=== PATIENT | male | born 1940 | race African-American/Black ===

== ENCOUNTER 2019-02-18 21:17 | Inpatient (IN) | payer MEDICARE, OTHER ==
[~2019-02-18] VITALS: Ht 172.7 cm; Wt 69.9 kg
--- NOTE | 2019-02-18 21:32 | NUR ---
[id number] FROM [facility] FOR AGGRESSIVE BEHAVIOR. HX DEMENTIA, SCHIZO. 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 PT APPEARS CALM, NO ACUTE DISTRESS NOTED. AOX1, VSS, RR EVEN AND UNLABORED ON RA. BILATERAL LOWER EXTREMITIES CONTRACTED. WOUND DRESSINGS ON RIGHT HIP AND RIGHT LOWER EXTREMITIY. HOOKED TO MONITOR, READY FOR EVAL.
[2019-02-18] MEDS ORDERED: IV NS 0.9% 500 ML BAG IV ONE (22:00)
--- NOTE | 2019-02-18 22:16 | NUR ---
PT IS A HARD STICK.
[2019-02-18 22:35] LABS: BASOPHILS # (AUTO) 0.2 /CMM (0.0-0.2); BASOPHILS % (AUTO) 0.9 % (0.0-2.0); EOSINOPHILS % (AUTO) 0.1 % (0.0-6.0); HEMATOCRIT 56 % (39-51); HEMOGLOBIN 18.3 g/dL (13.5-17.5); LYMPHOCYTES # (AUTO) 1.2 /CMM (0.8-4.8); LYMPHOCYTES % (AUTO) 6.4 % (20.0-44.0); MEAN CORPUSCULAR HGB CONC 33 g/dl (31.0-36.0); MEAN CORPUSCULAR VOLUME 90 fL (80-96); MONOCYTES # (AUTO) 1.8 /CMM (0.1-1.30); MONOCYTES % (AUTO) 9.4 % (2.0-12.0); NEUTROPHILS # (AUTO) 15.7 /CMM (1.8-8.9); NEUTROPHILS % (AUTO) 83.2 % (43.0-81.0); PLATELET COUNT (AUTO) 239 /CMM (150-450); RED BLOOD CELL COUNT(AUTO) 6.15 MIL/uL (4.5-6.0); WHITE BLOOD COUNT (AUTO) 18.8 K/uL (4.3-11.0)
[2019-02-18 23:00] LABS: ALANINE AMINOTRANSFERASE 47 U/L (12-78); ALBUMIN 3.1 g/dL (3.4-5.0); ALKALINE PHOSPHATASE 80 U/L (46-116); ASPARTATE AMINOTRANSFERASE 84 U/L (15-37); BILIRUBIN,DIRECT 0.1 mg/dL (0.0-0.2); BILIRUBIN,TOTAL 0.6 mg/dL (0.2-1.0); CALCIUM, SERUM 9.4 mg/dL (8.5-10.1); CARBON DIOXIDE 29 mmol/L (21-32); CHLORIDE 115 mmol/L (98-107); CREATININE 2.2 mg/dL (0.6-1.3); GLUCOSE 133 mg/dL (74-106); POTASSIUM 5.2 mmol/L (3.5-5.1); SODIUM SERUM 155 mmol/L (136-145); TOTAL PROTEIN, SERUM 8.8 g/dL (6.4-8.2)
[2019-02-18 23:01] LABS: UREA NITROGEN, BLOOD 117 mg/dL (7-18)
--- NOTE | 2019-02-18 23:14 | NUR ---
ATTEMPTED TO COLLECT URINE VIA STRAIGHT CATH. UNSUCCESSFUL. PLACED CONDOM CATH FOR LATER COLLECTION. AWARE
[2019-02-18] MEDS ORDERED: IV NS 0.9% 1,000 ML BAG IV ONE (23:30)
--- NOTE | 2019-02-18 23:37 | NUR ---
CALLED NURSING SUP FOR TELE BED
[2019-02-19] MEDS ORDERED: ATOR40TA GT (00:21)
[2019-02-19] MEDS ORDERED: LEVE500T20 PO (00:21)
[2019-02-19] MEDS ORDERED: DIVA-78 PO (00:21)
[2019-02-19] MEDS ORDERED: FAMO20TA8 PO (00:21)
[2019-02-19] MEDS ORDERED: QUET25TA PO (00:21)
[2019-02-19 00:40] VITALS: BP 113/93
--- NOTE | 2019-02-19 00:46 | NUR ---
PT TRANSFERRED PER ACLS PROTOCOL
[2019-02-19] MEDS ORDERED: IV D5/0.45 NACL 1,000 ML IV PRN (01:15)
[2019-02-19] MEDS ORDERED: MAG HYDROX/AL HYDROX/SIMETH 30 ML UDC PO PRN (01:30)
[2019-02-19] MEDS ORDERED: Z GUARD REMEDY 2 OZ OINT TP PRN (01:30)
[2019-02-19] MEDS ORDERED: ACETAMINOPHEN 325 MG TABLET PO PRN (01:30)
[2019-02-19] MEDS ORDERED: ONDANSETRON HCL/PF 4 MG/2 ML VIAL IVP PRN (01:30)
[2019-02-19] MEDS ORDERED: MAGNESIUM HYDROXIDE 30 ML UDC PO PRN (01:30)
[2019-02-19] MEDS ORDERED: HYDROCODONE/APAP 5/325MG 1 EACH TABLET PO PRN (01:30)
[2019-02-19] MEDS ORDERED: ZOLPIDEM TARTRATE 5 MG TABLET PO PRN (01:30)
--- NOTE | 2019-02-19 01:30 | NUR ---
LATE ENTRY: NEW ADMISSION NOTE. PATIENT ARRIVED TO UNIT AT 0040 BEING ADMITTED TO TELEMETRY TO DR. JAIMES. PATIENT IS ALERT BUT NOT ORIENTED. WITHDRAWS TO TOUCH AND RESPONDS WITH GARBLED WORDS. RESISTING BEING TURNED BY GRABBING RAILS.. PICUTRES TAKEN OF WOUNDS. MOS SIGNIFICANT WOUND ARE UNSTAGEABLE PRESSURE INJURY TO RIGHT HIP CLEANED COVERED WITH DRESSING. AND SKIN TEAR TO RIGHT ANKLE, DRESSING APPLIED. 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 PATIENT GIVEN ACCESS TO CALL LIGHT. BED DOWN LOCKED SR X3. TELE APPLIED AND IS SR.
[2019-02-19 01:41] LABS: LYMPHOCYTES % (MANUAL) 5 % (16-48); MONOCYTES % (MANUAL) 5 % (0-11.0); NEUTROPHILS % (MANUAL) 90 (42-76)
[2019-02-19] MEDS ORDERED: CEFTRIAXONE 1 G VIAL ONE (01:54)
[2019-02-19] MEDS ORDERED: CEFTRIAXONE 1 G in IV D5W 50 ML IV ONE (02:00)
--- NOTE | 2019-02-19 02:00 | NUR ---
CRITICAL LACTIC 3.8 DR. FIONA JONES INFORMED OF LACTIC ACID OF 3.8. STATES TO CONTINUE CURRENT ORDERS. NO NEW ORDERS RECIEVED.
--- NOTE | 2019-02-19 07:20 | NUR ---
CONCRETE ROD BUSTER OPENING NOTE RECEIVED PT IN BED, ALERT AND ORIENTED X0 WITH OCCASIONAL MUMBLES AND GROANS. EYES OPEN SPONTANEOUSLY TO VERBAL AND TACTILE STIMULI. NO ACUTE DISTRESS NOTED, BREATHING IS EVEN AND UNLABORED ON ROOM AIR. 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 RIGHT WRIST #20G IV INFUSING D5 1/2 NS @ 100ML/HR WITHOUT REDNESS OR SWELLING. ASPIRATION PRECAUTIONS MAINTAINED. SEIZURE PRECAUTIONS INITIATED FOR HX OF SEIZURES. NPO STATUS MAINTAINED PENDING SWALLOW EVAL. BED IS LOCKED AND IN LOWEST POSITION, SIDE RAILS UP X3, BED ALARM ON, CALL LIGHT AND POSSESSIONS WITHIN REACH.
[2019-02-19 08:00] VITALS: BP 137/50
[2019-02-19] MEDS ORDERED: PANTOPRAZOLE 40 MG VIAL IV SCH (09:00)
[2019-02-19] MEDS ORDERED: DIVALPROEX SODIUM 500 MG TABLET.DR PO SCH (09:00)
[2019-02-19] MEDS ORDERED: LEVETIRACETAM (250 MG) 250 MG TABLET PO SCH (09:00)
[2019-02-19] MEDS ORDERED: NEXIUM 40 MG VIAL IV SCH (09:00)
[2019-02-19] MEDS ORDERED: DIVALPROEX SODIUM 125 MG CAP.SPRINK PO SCH (10:00)
[2019-02-19] MEDS ORDERED: IV NS 0.9% 1,000 ML IV STA (10:16)
--- NOTE | 2019-02-19 10:16 | NUR ---
WOUND CARE CONSULT: PT PRESENTS WITH RT HIP/THIGH UNSTAGEABLE ULCER, RT LOWER LEG WOUND AND RT HAND WITH BLISTERS ON FINGERS, ALL PRESENT ON ADMISSION. PT IS INCONTINENT. PT IS COMBATIVE AT TIMES. RECOMMEND SURGICAL CONSULT AND DPM CONSULT. DR VALENCIA AND DR TAYLOR AWARE OF CONSULT REQUESTS. ALL SKIN PROTECTION RECOMMENDATIONS DISCUSSED WITH NURSING STAFF. DEFER TO SURGICAL AND PODIATRY TEAM FOR WOUND TREATMENT PLAN. WILL SEE PRN. PT ON JALEN ISOFLEX LOW AIRLOSS BED. IN AGREEMENT WITH PLAN OF CARE. Addendum: 02/19/19 at 1019 by DILCIA RODRIGUEZ WNDNU Amended: Links added.
--- NOTE | 2019-02-19 10:54 | NUR ---
MS RN NOTE OBTAINED ORDER FOR MIDLINE INSERTION AFTER FAILED IV INSERTION AND PT COMBATIVENESS FROM ARNIE LAYTON NP.
[2019-02-19] MEDS ORDERED: VITAMINS A AND D 56.7 GM TUBE TP PRN (11:00)
[2019-02-19 11:13] LABS: BASOPHILS % (AUTO) 0.1 % (0.0-2.0); EOSINOPHILS % (AUTO) 0.1 % (0.0-6.0); HEMATOCRIT 54 % (39-51); HEMOGLOBIN 17.6 g/dL (13.5-17.5); LYMPHOCYTES % (AUTO) 5.7 % (20.0-44.0); MEAN CORPUSCULAR HGB CONC 33 g/dl (31.0-36.0); MEAN CORPUSCULAR VOLUME 90 fL (80-96); MONOCYTES # (AUTO) 1.7 /CMM (0.1-1.30); MONOCYTES % (AUTO) 9.6 % (2.0-12.0); NEUTROPHILS # (AUTO) 14.9 /CMM (1.8-8.9); NEUTROPHILS % (AUTO) 84.5 % (43.0-81.0); PLATELET COUNT (AUTO) 207 /CMM (150-450); RED BLOOD CELL COUNT(AUTO) 5.96 MIL/uL (4.5-6.0); WHITE BLOOD COUNT (AUTO) 17.7 K/uL (4.3-11.0)
--- NOTE | 2019-02-19 11:40 | NUR ---
MS RN NOTE PERIPHERAL IV INSERTED SUCCESSFULLY BY MANAGER COMMERCIAL REAL ESTATE, ARNIE LAYTON PER DIEM CLERK MADE AWARE, FLUIDS INITIATED ORDERED.
[2019-02-19 11:56] LABS: ALANINE AMINOTRANSFERASE 43 U/L (12-78); ALBUMIN 2.8 g/dL (3.4-5.0); ALKALINE PHOSPHATASE 73 U/L (46-116); ASPARTATE AMINOTRANSFERASE 69 U/L (15-37); BILIRUBIN,TOTAL 0.5 mg/dL (0.2-1.0); CALCIUM, SERUM 8.9 mg/dL (8.5-10.1); CARBON DIOXIDE 28 mmol/L (21-32); CHLORIDE 118 mmol/L (98-107); GLUCOSE 166 mg/dL (74-106); MAGNESIUM 3.7 mg/dL (1.8-2.4); PHOSPHORUS 3.4 mg/dL (2.5-4.9); POTASSIUM 4.7 mmol/L (3.5-5.1); TOTAL PROTEIN, SERUM 7.8 g/dL (6.4-8.2)
[2019-02-19 12:03] LABS: SODIUM SERUM 156 mmol/L (136-145)
[2019-02-19 12:04] LABS: UREA NITROGEN, BLOOD 102 mg/dL (7-18)
--- NOTE | 2019-02-19 12:05 | NUR ---
MS RN NOTE INFORMED ARNIE LAYTON NP OF CRITICAL BUN 102 PER PROTOCOL. NO NEW ORDERS AT THIS TIME, PT RECEIVING NS 1L BOLUS AND BUN IS TRENDING DOWN FROM 117.
[2019-02-19] MEDS ORDERED: ALLA266C2 TP (14:35)
[2019-02-19] MEDS ORDERED: ONDA4VIA23 IVP (14:35)
[2019-02-19] MEDS ORDERED: ESOM40VI IV (14:35)
[2019-02-19] MEDS ORDERED: VITA56.7 TP (14:35)
[2019-02-19] MEDS ORDERED: MAG30ORA PO (14:35)
[2019-02-19] MEDS ORDERED: LACT-246 PO (14:35)
[2019-02-19] MEDS ORDERED: MAGN400O6 PO (14:35)
[2019-02-19] MEDS ORDERED: ACET325T53 PO (14:35)
[2019-02-19] MEDS ORDERED: HYDR-3972 PO (14:35)
[2019-02-19] MEDS ORDERED: DIVA125C2 PO (14:35)
--- NOTE | 2019-02-19 14:50 | NUR ---
MS RN NOTE URINE COLLECTED. INFORMED REESE IN LAB FOR REAL ESTATE CLOSER
--- NOTE | 2019-02-19 15:39 | NUR ---
MS RN NOTE PER TRINA IN CASE MANAGEMENT PT WILL BE TRANSFERRED TO A [facility] FACILITY DUE TO INSURANCE PURPOSES, PENDING MD ACCEPTANCE.
--- NOTE | 2019-02-19 15:58 | NUR ---
MS RN NOTE SPOKE WITH PIERCE FUENTES OVER THE PHONE AT [phone], MADE AWARE OF TRANSFER TO A [facility] AND THAT FINAL LOCATION AND ACCEPTANCE IS STILL PENDING. UPDATED ON CURRENT TX PLAN AND STATUS, GINA VERBALIZED UNDERSTANDING.
[2019-02-19 16:00] VITALS: BP 138/73
[2019-02-19 16:21] LABS: APPEARANCE,URINE CLEAR (CLEAR); BILIRUBIN,URINE NEGATIVE (NEGATIVE); BLOOD, URINE 1+ Ery/uL (NEGATIVE); COLOR,URINE YELLOW (YELLOW); KETONES,URINE NEGATIVE (NEGATIVE); LEUKOCYTE ESTERASE ,URINE NEGATIVE (NEGATIVE); NITRITE, URINE NEGATIVE (NEGATIVE); PH,URINE 5.5 (5.0-8.0); PROTEIN,URINE NEGATIVE (NEGATIVE); UGLUCOSE NEGATIVE (NEGATIVE); UROBILINOGEN,URINE 0.2 EU/dL (0.2)
[2019-02-19 16:32] LABS: BACTERIA,URINE Rare /HPF (None Seen); SQUAMOUS EPITHELIAL CELL,UR None Seen /HPF (None Seen)
[2019-02-19] MEDS ORDERED: ENSURE ENLIVE 237 ML LIQUID (VANILLA) PO SCH (17:00)
--- NOTE | 2019-02-19 19:00 | NUR ---
MS RN NOTE REPORTED GIVEN TO RALEIGH FRANKLIN FROM [facility] FOR CONTINUITY OF CARE. INFORMED RIGOBERTO THAT PT IS ALERT AND ORIENTED X0 WITH OCCASIONAL MUMBLES AND GROANS. EYES OPEN SPONTANEOUSLY TO VERBAL AND TACTILE STIMULI. BREATHING IS EVEN AND UNLABORED ON 5L SIMPLE MASK. RIGHT FA #20G THAT IS PATENT, CLEAN, DRY AND INTACT. WOUND DOCUMENTATION COMPLETED PER PROTOCOL. DISCUSSED CONDITION OF SKIN AND THAT SURGICAL CONSULT IS PENDING FOR FURTHER ORDERS. PROVIDED LATEST VS, MEDICATIONS RECEIVED TODAY, LABS, RESULTS OF SWALLOW EVAL, CONSULTS, AND INFORMED THAT CASE MANAGEMENT IS ATTEMPTING TO CLARIFY WHICH BOARD AND CARE THE PT IS FROM. PROVIDED BOTH ADDRESSES ON TRANSFER SUMMARY. ALL DISCHARGE PAPERWORK PROVIDED AND SIGNED VIA 2 RN VERIFICATION.
--- NOTE | 2019-02-19 19:25 | NUR ---
MS/RN NOTES RECEIVED PT. LYING IN BED. PT. IS A & O X0. PT. MUMBLES. PT. RESPONDS TO VERBAL AND TACTILE STIMULI. BREATHING EVEN AND UNLABORED ON5LPM O2 VIA MASK. NO S/S OF SOB, RESPIRATORY DISTRESS OR PAIN NOTED AT THIS TIME. PT. WITH RIGHT FOREARM 20 GAUGE IV SALINE LOCK PRESENT, PATENT AND INTACT. PT. WITH CONDOM CATHETER PRESENT, PATENT AND INTACT DRAINING AIDEN COLORED URINE. PER DAYSHIFT NURSE PT. 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 PER DAYSHIFT NURSE PT. EXIT CARE, BELONGINGS LIST AND DISCHARGE PAPERWORK COMPLETED ORIGINAL PLACED IN CHART COPY PLACED IN FOLDER TO BE GIVEN TO TRANSPORT. BED LOCKED AND IN LOWEST POSITION, SIDE RAILS UP X3, ASPIRATION AND SEIZURE PRECAUTIONS IMPLEMENTED AND IN PLACE, WILL CONTINUE TO MONITOR.
--- NOTE | 2019-02-19 19:25 | NUR ---
MS RN CLOSING NOTE RECEIVED PT IN BED, ALERT AND ORIENTED X0 WITH OCCASIONAL MUMBLES AND GROANS. EYES OPEN SPONTANEOUSLY TO VERBAL AND TACTILE STIMULI. NO ACUTE DISTRESS NOTED, BREATHING IS EVEN AND UNLABORED ON ROOM AIR. 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 RIGHT WRIST #20G IV INFUSING D5 1/2 NS @ 100ML/HR WITHOUT REDNESS OR SWELLING. ASPIRATION AND SEIZURE PRECAUTIONS MAINTAINED. BED IS LOCKED AND IN LOWEST POSITION, SIDE RAILS UP X3, BED ALARM ON, CALL LIGHT AND POSSESSIONS WITHIN REACH. ENDORSED PT TRANSFER TO [facility] AT 2000 TO ONCOMING GARMENT FINISHER NURSE.
[2019-02-19] MEDS ORDERED: CEFTRIAXONE 1 G in IV D5W 50 ML IV SCH (21:00)
--- NOTE | 2019-02-19 21:00 | NUR ---
MS/RN NOTES PT. IS LYING IN BED. PT. IS A & O X0. PT. RESPONDING TO VERBAL AND TACTILE STIMULI. BREATHING EVEN AND UNLABORED ON 5LPM O2 VIA MASK. NO S/S OF SOB, RESPIRATORY DISTRESS OR PAIN NOTED AT THIS TIME. PT. WITH RIGHT FOREARM 20 GAUGE IV SALINE LOCK PRESENT, PATENT AND INTACT. PT. WITH CONDOM CATHETER PRESENT, PATENT AND INTACT DRAINING AIDEN COLORED URINE. AMBULANCE TRANSPORT ARRIVED TO TRANSFER PT. TO [facility]. PT. EXIT CARE, BELONGINGS LIST AND DISCHARGE PAPERWORK COMPLETED ORIGINAL PLACED IN CHART COPY PROVIDED TO TRANSPORT. PT. VITAL SIGNS STABLE. PT. LEFT THE FLOOR VIA GURNEY IN STABLE CONDITION ESCORTED BY EMT TRANSPORT AT 2100.
[2019-02-19] MEDS ORDERED: QUETIAPINE FUMARATE 25 MG TABLET PO SCH (22:00)
[2019-02-19] MEDS ORDERED: ATORVASTATIN 40 MG TABLET GT SCH (22:00)
--- NOTE | 2019-02-20 00:03 | NUR ---
INFORMATION SENT: FACESHEET , ADMIT ORDER , 24 HOURS REPORTS , CONSULTATION , DISCHARGE�SUMMARY , EKG , ER , H&P , PROGRESS NOTES 02/19 INSURANCE NAME: [facility] FAX NUMBER: [phone] FAX SENT BY JAZMYN BAUGH
== END 2019-02-19 21:00 | disposition short-term general hospital (02) | DRG 871 ==
LOC: ER 21:22 → TELE 02-19 00:26 → EDBD 02-19 00:26 → MED 02-19 09:16
PROVIDERS: ATTEND Registered Nurse
DX: A41.9 Sepsis, unspecified organism (principal); G93.41 Metabolic encephalopathy; N17.0 Acute kidney failure with tubular necrosis; R53.2 Functional quadriplegia; J15.9 Unspecified bacterial pneumonia; N39.0 Urinary tract infection, site not specified; E46 Unspecified protein-calorie malnutrition; E87.0 Hyperosmolality and hypernatremia; E87.2 Acidosis; E87.5 Hyperkalemia; E83.41 Hypermagnesemia; M24.561 Contracture, right knee; M24.562 Contracture, left knee; R65.20 Severe sepsis without septic shock; E86.9 Volume depletion, unspecified; R73.9 Hyperglycemia, unspecified; E88.09 Other disorders of plasma-protein metabolism, not elsewhere classified; F03.90 Unspecified dementia, unspecified severity, without behavioral disturbance, psychotic disturbance, mood disturbance, and anxiety; R74.0 Nonspecific elevation of levels of transaminase and lactic acid dehydrogenase [LDH]; F20.9 Schizophrenia, unspecified; B07.8 Other viral warts; Z68.23 Body mass index [BMI] 23.0-23.9, adult; L89.620 Pressure ulcer of left heel, unstageable; L89.610 Pressure ulcer of right heel, unstageable; S80.821A Blister (nonthermal), right lower leg, initial encounter; X58.XXXA Exposure to other specified factors, initial encounter; Y93.9 Activity, unspecified; Y99.9 Unspecified external cause status; L89.510 Pressure ulcer of right ankle, unstageable; S60.426A Blister (nonthermal) of right little finger, initial encounter; S60.424A Blister (nonthermal) of right ring finger, initial encounter; S60.511A Abrasion of right hand, initial encounter; L89.890 Pressure ulcer of other site, unstageable; Y92.89 Other specified places as the place of occurrence of the external cause
CPT/HCPCS: 36415; 71045-TC; 80048-TC; 80053-TC; 80076-TC; 81000-TC; 83605-TC; 83735-TC; 84100-TC; 84484-TC; 85025-TC; 85730-TC; 87040-TC; 87081-TC; 92521; 92526; A4349; A6253; G0378; J0696; J3490; J7030; J7040; J7060